=== PATIENT | female | born 1945 | race Hispanic/Latino ===

== ENCOUNTER 2017-10-26 10:34 | Outpatient (CLI) | payer MEDICARE ==
--- NOTE | 2017-10-27 15:01 | Mammography Report ---
BILATERAL DIGITAL AUGMENTED SCREENING MAMMOGRAM with CAD: 10/26/17 10:34:00 CLINICAL: Routine screening. Breast cancer survivor status post right mastectomy with implant reconstruction and status post left breast augmentation mammoplasty. COMPARISON:05/29/15 FINDINGS: Screening views with and without implant displacement demonstrate The left breast is mostly fatty and the reconstructed right breast is mostly fatty . No mass, architectural distortion or suspicious calcifications. Intact subpectoral implants. IMPRESSION: No mammographic evidence of malignancy. BI-RADS CATEGORY: 2 -- Benign RECOMMENDATION: Routine mammographic screening in one year. ACR BI-RADS MAMMOGRAPHIC CODES: 0 = Needs additional imaging evaluation; 1 = Negative; 2 = Benign; 3 = Probably benign; 4 = Suspicious; 5 = Malignant; 6 = Known biopsy-proven malignancy COMMENT: 1. Dense breast tissue, i.e., adenosis, fibrocystic changes, etc., may obscure an underlying neoplasm. 2. Approximately 10% of cancers are not detected with mammography. 3. A negative mammography report should not delay biopsy if a clinically suspicious mass is present. COMMENT: Patient follow-up letters are generated via our [employer] application.
== END 2017-10-26 10:35 | disposition home or self-care (01) ==
LOC: SPVWC 10:34
PROVIDERS: ATTEND Internal Medicine
DX: Z12.31 Encounter for screening mammogram for malignant neoplasm of breast (principal); Z90.11 Acquired absence of right breast and nipple; Z98.82 Breast implant status; Z98.890 Other specified postprocedural states
CPT/HCPCS: 77067

== ENCOUNTER 2019-07-24 11:19 | Outpatient (CLI) | payer MEDICARE ==
--- NOTE | 2019-07-24 12:08 | XRay Report ---
LEFT KNEE HISTORY: Knee. COMPARISON: None. TECHNIQUE: 3 views of the left knee obtained. FINDINGS: Bones: No fracture or dislocation. Moderate osteopenia. Joint spaces: Moderate patellofemoral osteoarthritis. The medial and lateral joints are normal. Soft tissues: No significant abnormality. Additional findings: No joint effusion. IMPRESSION: 1. Patellofemoral osteoarthritis. 2. Osteopenia. Signer Name: Anthony Cosby MD Signed: 07/24/2019 12:03 PM Workstation Name: [id number]
== END 2019-07-24 11:20 | disposition home or self-care (01) ==
LOC: SPVIMAG 11:19
PROVIDERS: ATTEND Internal Medicine
DX: M17.12 Unilateral primary osteoarthritis, left knee (principal); M85.862 Other specified disorders of bone density and structure, left lower leg

== ENCOUNTER 2019-08-23 09:45 | Outpatient (CLI) | payer MEDICARE ==
--- NOTE | 2019-08-26 10:48 | Mammography Report ---
DIGITAL SCREENING MAMMOGRAM WITH CAD, 08/23/2019 INDICATION: Routine screening mammography. Breast cancer survivor status post right mastectomy with i mplant reconstruction and status post left breast augmentation. TECHNIQUE: Digital bilateral 2D mammography was obtained in the craniocaudal and mediolateral obliq ue projections. This examination was interpreted with the benefit of Computer-Aided Detection analysi s. COMPARISON: 10/26/2017 FINDINGS: Breast Density: The left breast is almost entirely fatty. There is no evidence of dominant mass, suspicious calcifications or architectural distortion in eithe r breast. Bilateral implants in place. The left subpectoral implant appears slightly less inflated wi th a new increase in the implant. IMPRESSION: No mammographic evidence of malignancy. Suspect rupture of the left implant. Follow up recommendation: Routine yearly BI-RADS Category 2: Benign. A "normal" or negative report should not discourage follow up or biopsy of a clinically significant f inding. A written summary of these findings will be mailed to the patient. The patient will be entered into a mammography reporting system which will generate a reminder letter for the patient's next appointmen t at the appropriate interval. The [employer] recommends yearly mammograms starting at age 40 and continuing as l ozzy as a woman is in good health. Breast MRI is recommended for women with an approximate 20-25% or greater lifetime risk of breast cancer, including women with a strong family history of breast or ova nicky cancer or who have been treated for Hodgkin's disease. Signer Name: Anthony Cosby MD Signed: 08/26/2019 10:43 AM Workstation Name: [id number]
== END 2019-08-23 09:46 | disposition home or self-care (01) ==
LOC: SPVWC 09:45
PROVIDERS: ATTEND Internal Medicine
DX: Z12.31 Encounter for screening mammogram for malignant neoplasm of breast (principal); N64.89 Other specified disorders of breast
CPT/HCPCS: 77067